=== PATIENT | male | born 1970 | race Caucasian/White ===

== ENCOUNTER 2018-09-09 15:21 | Emergency (ER) | payer OTHER ==
[2018-09-09] MEDS ORDERED: KETOROLAC TROMETHAMINE 60 MG/2 ML SDV IM ONE (16:10)
--- NOTE | 2018-09-09 16:40 | RADIOLOGY REPORT (SQ) ---
EXAM DESCRIPTION: KNEE RIGHT 4 VIEWS COMPLETED DATE/TIME: 09/09/2018 4:35 pm REASON FOR STUDY: right knee pain, effusion COMPARISON: None. NUMBER OF VIEWS: Four views. TECHNIQUE: AP, lateral, and both oblique radiographic images acquired of the right knee. LIMITATIONS: None. FINDINGS: MINERALIZATION: Normal. BONES: No acute fracture or dislocation. No worrisome bone lesions. JOINT: Small joint effusion. SOFT TISSUES: No soft tissue swelling. No radio-opaque foreign body. OTHER: No other significant finding. IMPRESSION: There is a joint effusion. No acute osseous abnormality. TECHNICAL DOCUMENTATION: JOB ID: [id number] [employer]- All Rights Reserved Reading location - IP/workstation name: [email or web address]
--- NOTE | 2018-09-09 18:14 | ER Document Report ---
HPI - HPI Time Seen by Provider: 09/09/18 15:50 Pain Level: 5 Notes: Patient is a 47-year-old male no significant past medical history aside from gout who presents to the emergency department complaining of right knee swelling and occasional pain over the last 5 days. Patient states that he was working in the yard the day before, but does not recall specific injury. Patient states that he started having swelling the day after. Patient states that he still able to ambulate, but at times feels like his knee wants to give out on him. Pain does not radiate. He has not noticed any significant redness. Denies drug allergies. No other history of IV drug abuse. Patient was tried on colchicine by his PCM earlier this week which did not seem to help. Patient states that he does not believe that his gout. Denies any prolonged immobilization, distance travel, recent surgery/trauma, personal cancer history, hormone use, smoking, or previous DVT/PE. Denies any headache, fever, URI, sore throat, chest pain, palpitations, syncope, cough, shortness of breath, wheeze, dyspnea, abdominal pain, nausea/vomiting/diarrhea, urinary retention, dysuria, hematuria, back pain, loss of control of bowel or bladder, numbness/tingling, saddle anesthesia, muscle paralysis, or rash. - ROS Systems Reviewed and Negative: Yes All other systems reviewed and negative - DERM Skin Color: Normal Past Medical History - Social History Smoking Status: Never Smoker Frequency of alcohol use: Occasional Drug Abuse: None Family History: Reviewed & Not Pertinent Patient has suicidal ideation: No Patient has homicidal ideation: No Renal/ Medical History: Denies: Hx Peritoneal Dialysis Past Surgical History: Reports: Hx Orthopedic Surgery - L shoulder Vertical Provider Document - CONSTITUTIONAL Agree With Documented VS: Yes Notes: PHYSICAL EXAMINATION: GENERAL: Well-appearing, well-nourished and in no acute distress. LUNGS: Breath sounds clear to auscultation bilaterally and equal. No wheezes rales or rhonchi. HEART: Regular rate and rhythm without murmurs, rubs, gallops. Musculoskeletal: Rt knee: + effusion noted on exam. No obvious ecchymosis, erythema, warmth, or deformity. + mild tenderness to the joint line b/l. LROM to passive/active and flexion due to effusion. Strength 5+/5. N/V intact distal. Unable to adequately assess ligaments and cartilage due to not being able to flex the knee to 110-90 degrees due to the effusion. Patellar grind negative. No calf tenderness. Extremities: No cyanosis, clubbing, or edema b/l. Peripheral pulses 2+. Capillary refill less than 3 seconds. Fred neg b/l. No lower extremity asymmetry otherwise. NEUROLOGICAL: Normal speech, limping gait. Normal sensory, motor exams PSYCH: Normal mood, normal affect. SKIN: Warm, Dry, normal turgor, no rashes or lesions noted. Course - Re-evaluation Re-evalutation: 09/09/18 18:12 Patient is an afebrile, well-hydrated, 47-year-old male who presents to the ED with Rt knee pain, possible internal involvement with noted effusion. Vitals are acceptable without any significant tachycardia, tachypnea, or hypoxia. PE is otherwise unremarkable for any neurovascular compromise, obvious tendon/ligament rupture, obvious fracture/dislocation, septic joint, DVT. X-ray was unremarkable for any acute pathology aside from noted effusion. There is no erythema, significant warmth, or ecchymosis noted to the knee. Knee immobilizer provided today. Patient declined crutches. Toradol given IM. Patient is nontoxic-appearing. Patient is able to ambulate and weight-bear although he is limping. No other labs or imaging warranted at this time based on H&P. Conservative measures otherwise for symptoms. Recheck with your PCM in 3-5 days. Schedule an appointment with orthopedics for further evaluation and management. Return to the ED with any worsening/concerning symptoms otherwise as reviewed in discharge. Patient is in agreement. - Vital Signs Vital signs: Temp Pulse Resp BP Pulse Ox 98.2 F 98 18 125/86 H 100 09/09/18 15:29 09/09/18 15:29 09/09/18 15:29 09/09/18 15:29 09/09/18 15:29 Discharge - Discharge Clinical Impression: Right knee pain Qualifiers: Chronicity: acute Qualified Code(s): M25.561 - Pain in right knee Condition: Stable Disposition: HOME, SELF-CARE Additional Instructions: Rest, Ice, Compression, Elevation Use immobilizer as reviewed Tylenol/ibuprofen as needed Light stretches daily Strength exercises as able Moist heat and massage may help F/u with your PCP in 3-5 days for a recheck Schedule an appointment with orthopedics for further evaluation and management Return to the ED with any worsening symptoms and/or development of fever, headache, chest pain, palpitations, syncope, shortness of breath, trouble breathing, abdominal pain, n/v/d, muscle weakness/paralysis, numbness/tingling, swelling, redness, or other worsening symptoms that are concerning to you. Prescriptions: Naproxen 500 mg PO BID #10 tablet Forms: Elevated Blood Pressure Referrals: [facility] [Provider Group] - Follow up in 3-5 days
[2018-09-09 18:38] VITALS: BP 133/92
--- NOTE | 2018-09-09 22:04 | ER Document Report ---
Doctor's Note Notes: I personally and independently obtained patient history and examined the patient in conjunction with the APC and agree with the assessment, treatment plan and disposition of the patient as recorded by the APC, and have reviewed the APC's note. HISTORY OF PRESENT ILLNESS: Patient is a 47-year-old male that presents to the emergency department for chief complaint of right knee pain and swelling. ROS: Constitutional: Negative for fever. Cardiovascular: Negative for chest pain. Respiratory: Negative for shortness of breath. Gastrointestinal: Negative for vomiting or abdominal pain Musculoskeletal: Positive for right knee pain Skin: Negative for rash. Neurological: Negative for weakness or numbness. Other than noted above, the 12 point review of systems was reviewed with the patient and were negative, all pertinent findings are included in the HPI. PHYSICAL EXAMINATION: Vital signs reviewed, nursing noted reviewed. GENERAL: Well-appearing, well-nourished and in no acute distress. HEAD: Atraumatic, normocephalic. EYES: Eyes appear normal, conjunctiva are normal. ENT: nares patent, oropharynx clear without exudates. Moist mucous membranes. NECK: Normal range of motion, supple without lymphadenopathy LUNGS: Breath sounds clear to auscultation bilaterally and equal. No wheezes rales or rhonchi. HEART: Regular rate and rhythm without murmurs ABDOMEN: Soft, nontender, normoactive bowel sounds. No rebound, guarding, or rigidity. No masses appreciated. EXTREMITIES: Tenderness with palpation to the joint lines bilaterally of the right knee, there is a mild knee effusion noted as well, negative patellar grind, no knee instability, negative posterior and anterior drawer testing. There is no significant erythema or warmth noted to the knee, the rest the patient's extremity exam is grossly unremarkable. NEUROLOGICAL: No focal neurological deficits. Moves all extremities spontaneously Motor and sensory grossly intact on exam. PSYCH: Normal mood, normal affect. SKIN: Warm, Dry, normal turgor, no rashes or lesions noted on exposed skin MEDICAL DECISION MAKING: Patient had x-rays performed, or unremarkable, patient will be placed in a knee immobilizer, do not believe this patient has a septic joint, believe he has a likely meniscal injury, will have him follow-up with orthopedics. Please review detail APC documentation. *Note is created using voice recognition software and may contain spelling, syntax or grammatical errors. Knee X-Ray 09/09/18 16:11 IMPRESSION: There is a joint effusion. No acute osseous abnormality.
== END 2018-09-09 18:33 | disposition home or self-care (01) ==
LOC: ER 15:21
DX: M25.561 Pain in right knee (principal); M79.89 Other specified soft tissue disorders
CPT/HCPCS: 99283; 96372; 73564; L1830; J1885